=== PATIENT | female | born 1995 | race Caucasian/White ===

== ENCOUNTER 2016-10-09 19:11 | Emergency (ER) | payer OTHER ==
[2016-10-09 19:48] VITALS: BP 112/76
--- NOTE | 2016-10-09 19:57 | UC ---
Skin Complaint HPI - HPI Summary HPI Summary: 21 YEAR OLD FEMALE PRESENTS WITH COMPLAINS OF SEVERE RIGHT ARM TENDERNESS, REDNESS AND SWELLING . I WILL SEND HER TO THE ER FOR I/D. - History of Current Complaint Chief Complaint: UCUpperExtremity Time Seen by Provider: 10/09/16 19:50 Stated Complaint: SOFT TISSUE Hx Last Menstrual Period: NOW - Allergy/Home Medications Allergies/Adverse Reactions: Allergies Allergy/AdvReac Type Severity Reaction Status Date / Time Penicillins Allergy Unknown Unknown Verified 10/09/16 19:47 Reaction Details Review of Systems Constitutional: Negative Skin: Other - RIGHT UPPER ARM CELLULITIS Eyes: Negative ENT: Negative Respiratory: Negative Cardiovascular: Negative Gastrointestinal: Negative Genitourinary: Negative Motor: Negative Neurovascular: Negative Musculoskeletal: Negative Neurological: Negative Psychological: Negative All Other Systems Reviewed And Are Negative: Yes PMH/Surg Hx/FS Hx/Imm Hx - Surgical History Surgical History: None Surgery Procedure, Year, and Place: none - Family History Known Family History: Negative: Cardiac Disease, Hypertension, Diabetes - Social History Alcohol Use: Rare Substance Use Type: Marijuana Smoking Status (MU): Current Every Day Smoker Type: Cigarettes Amount Used/How Often: 1 ppd Physical Exam Triage Information Reviewed: Yes Vital Signs: Initial Vital Signs Temp 37.1 C 10/09/16 19:43 Pulse 106 10/09/16 19:43 Resp 16 10/09/16 19:43 BP 112/76 10/09/16 19:43 Pulse Ox 100 10/09/16 19:43 Eye Exam: Normal ENT Exam: Normal Dental Exam: Normal Neck exam: Normal Neck: Positive: 1 Respiratory Exam: Normal Cardiovascular Exam: Normal Abdominal Exam: Normal Musculoskeletal Exam: Normal Neurological Exam: Normal Psychological Exam: Normal Skin: Positive: Other - RIGHT UPPER ARM CELLULITIS Course/Dx - Differential Diagnoses - Skin Complaint Differential Diagnoses: Abscess - Diagnoses Provider Diagnoses: RIGHT UPPER ARM CELLULITIS Discharge - Discharge Plan Condition: Guarded Disposition: AGAINST MEDICAL ADVICE Patient Education Materials: Abscess (ED) Referrals: No Primary Care Phys,NOPCP [Medical Doctor] -
== END 2016-10-09 20:53 | disposition left against medical advice (07) ==
LOC: UCEAST 19:11
DX: L03.113 Cellulitis of right upper limb (principal); Z88.0 Allergy status to penicillin; F17.210 Nicotine dependence, cigarettes, uncomplicated
CPT/HCPCS: 99212; G0463

== ENCOUNTER 2016-10-09 21:12 | Emergency (ER) | payer OTHER ==
[2016-10-09 23:23] LABS: Hematocrit 41 % (35-47); Hemoglobin 13.2 g/dl (12.0-16.0); Mean Corpuscular HGB Conc 33 g/dl (31-36); Mean Corpuscular Hemoglobin 31 pg (27-31); Mean Corpuscular Volume 95 fL (80-97); Mean Platelet Volume 9 um3 (7.4-10.4); Red Blood Count 4.28 10^6/ul (4.0-5.4); Red Cell Distribution Width 13 % (10.5-15); White Blood Count 15.9 10^3/ul (3.5-10.8)
[2016-10-09] MEDS ORDERED: Vancomycin(*) 1,500 MG in NS 0.9% 250 ML* 250 ML IVPB ONE (23:33)
[2016-10-09 23:34] LABS: Albumin 3.9 g/dL (3.2-5.2); BUN/Creatinine Ratio 10.6 (8-20); Calcium 9.5 mg/dL (8.6-10.3); Globulin 3.2 g/dL (2-4); Potassium 3.5 mmol/L (3.5-5.0); Total Bilirubin 0.6 mg/dL (0.2-1.0); Total Protein 7.1 g/dL (6.4-8.9)
[2016-10-09] MEDS ORDERED: NS 0.9% 250 ML* 250 ML ONE (23:38)
--- NOTE | 2016-10-10 00:34 | ED ---
Skin Complaint - HPI Summary HPI Summary: Patient presents to ED with CC of right upper arm abscess with surrounding erythema and pain x 1 week. She has had a similar abscess through the left arm and was given IV abx with effect. She notes to pain, warmth, redness. No streaking. Afebrile and denies aches, sweats or chills. The area began as a small pustule and has grown to approx [id number] abscess without fluctuance. Erythema and warmth extends down to the elbow with well demarcated area. - History of Current Complaint Chief Complaint: EDRashSkinAbscess Time Seen by Provider: 10/09/16 22:32 Stated Complaint: XFER FROM [facility] [place] Hx Obtained From: Patient Hx Last Menstrual Period: NOW Onset/Duration: Started Weeks Ago Skin Exposure Onset/Duration: Days Ago Timing: Constant Onset Severity: Moderate Current Severity: Moderate Pain Intensity: 8 Pain Scale Used: 0-10 Numeric Skin Location: Arm Character: Swelling, Pain, Redness, Raised Aggravating Symptom(s): Touch Alleviating Symptom(s): Cold Associated Signs & Symptoms: Red Streaks, Joint Swelling - Allergy/Home Medications Allergies/Adverse Reactions: Allergies Allergy/AdvReac Type Severity Reaction Status Date / Time Penicillins Allergy Unknown Unknown Verified 10/09/16 19:47 Reaction Details PMH/Surg Hx/FS Hx/Imm Hx Previously Healthy: Yes Endocrine/Hematology History: Denies: Hx Diabetes, Hx Thyroid Disease Cardiovascular History: Reports: Other Cardiovascular Problems/Disorders Denies: Hx Hypertension Respiratory History: Reports: Hx Asthma - NO MEDS AT THIS TIME Denies: Hx Chronic Obstructive Pulmonary Disease (COPD) GI History: Denies: Hx Ulcer - Surgical History Surgery Procedure, Year, and Place: none Infectious Disease History: No Infectious Disease History: Denies: Hx Clostridium Difficile, Hx Hepatitis, Hx Human Immunodeficiency Virus (HIV), Hx of Known/Suspected MRSA, Hx Shingles, Hx Tuberculosis, Hx Known/ Suspected VRE, Hx Known/Suspected VRSA, History Other Infectious Disease, Traveled Outside the [place] in Last 30 Days - Family History Known Family History: Negative: Cardiac Disease, Hypertension, Diabetes - Social History Alcohol Use: Rare Hx Substance Use: Yes Substance Use Type: Reports: Marijuana Hx Tobacco Use: Yes Smoking Status (MU): Current Every Day Smoker Type: Cigarettes Amount Used/How Often: 1 ppd Review of Systems Constitutional: Negative Eyes: Negative Cardiovascular: Negative Respiratory: Negative Positive: no symptoms reported, see HPI Musculoskeletal: Negative Positive: Other - see above Neurological: Negative Psychological: Normal All Other Systems Reviewed And Are Negative: Yes Physical Exam Triage Information Reviewed: Yes Vital Signs On Initial Exam: Initial Vitals Temp Pulse Resp BP Pulse Ox 97.5 F 96 16 123/77 99 10/09/16 21:15 10/09/16 21:15 10/09/16 21:15 10/09/16 21:15 10/09/16 21:15 Vital Signs Reviewed: Yes Appearance: Positive: Well-Appearing, Well-Nourished Skin: Positive: Warm, Skin Color Reflects Adequate Perfusion Head/Face: Positive: Normal Head/Face Inspection Eyes: Positive: EOMI, ANTONETTE, Conjunctiva Clear Neck: Positive: Supple, No Lymphadenopathy Respiratory/Lung Sounds: Positive: Clear to Auscultation, Breath Sounds Present Cardiovascular: Positive: Normal, RRR, Pulses are Symmetrical in both Upper and Lower Extremities Neurological: Positive: Normal, Sensory/Motor Intact, Alert, Oriented to Person Place, Time, Speech Normal Psychiatric: Positive: Normal AVPU Assessment: Alert - [place] Coma Scale Best Eye Response: 4 - Spontaneous Best Motor Response: 6 - Obeys Commands Best Verbal Response: 5 - Oriented Coma Scale Total: 15 Diagnostics - Vital Signs Vital Signs Temp Pulse Resp BP Pulse Ox 10/09/16 22:01 97.8 F 100 17 114/71 100 10/09/16 21:15 97.5 F 96 16 123/77 99 - Laboratory Lab Results: Lab Results 10/09/16 10/09/16 Range/Units 22:20 22:20 WBC 15.9 H (3.5-10.8) 10^3/ul RBC 4.28 (4.0-5.4) 10^6/ul Hgb 13.2 (12.0-16.0) g/dl Hct 41 (35-47) % MCV 95 (80-97) fL MCH 31 (27-31) pg MCHC 33 (31-36) g/dl RDW 13 (10.5-15) % Plt Count 207 (150-450) 10^3/ul MPV 9 (7.4-10.4) um3 Neut % (Auto) 74.9 (38-83) % Lymph % (Auto) 19.5 L (25-47) % Craig % (Auto) 4.4 (1-9) % Eos % (Auto) 1.0 (0-6) % Baso % (Auto) 0.2 (0-2) % Absolute Neuts (auto) 11.9 H (1.5-7.7) 10^3/ul Absolute Lymphs (auto) 3.1 (1.0-4.8) 10^3/ul Absolute Monos (auto) 0.7 (0-0.8) 10^3/ul Absolute Eos (auto) 0.2 (0-0.6) 10^3/ul Absolute Basos (auto) 0 (0-0.2) 10^3/ul Absolute Nucleated RBC 0 10^3/ul Nucleated RBC % 0 Sodium 135 (133-145) mmol/L Potassium 3.5 (3.5-5.0) mmol/L Chloride 101 (101-111) mmol/L Carbon Dioxide 26 (22-32) mmol/L Anion Gap 8 (2-11) mmol/L BUN 7 (6-24) mg/dL Creatinine 0.66 (0.51-0.95) mg/dL Est GFR ( Amer) 144.0 (>60) Est GFR (Non-Af Amer) 112.0 (>60) BUN/Creatinine Ratio 10.6 (8-20) Glucose 88 (70-100) mg/dL Calcium 9.5 (8.6-10.3) mg/dL Total Bilirubin 0.60 (0.2-1.0) mg/dL AST 11 L (13-39) U/L ALT 7 (7-52) U/L Alkaline Phosphatase 63 (34-104) U/L Total Protein 7.1 (6.4-8.9) g/dL Albumin 3.9 (3.2-5.2) g/dL Globulin 3.2 (2-4) g/dL Albumin/Globulin Ratio 1.2 (1-3) Result Diagrams: 10/09/16 22:20 10/09/16 22:20 Lab Statement: Any lab studies that have been ordered have been reviewed, and results considered in the medical decision making process. Course/Dx - Course Course Of Treatment: Patient with abscess with is non-fluctuant under the right arm with surrounding erythema with warmth. well demarcated area. Vanco 1000mg given. Cindamycin 600mg given in ED. Will send home on Clindamycin 300mg four times daily for 7 days. Patient OK with discharge. - Differential Diagnoses - Skin Complaint Differential Diagnoses: Abscess, Cellulitis, Other - cyst - Diagnoses Provider Diagnoses: Cellulitis and abscess of upper arm and forearm Discharge - Discharge Plan Condition: Stable Disposition: HOME Prescriptions: Clindamycin Cap(NF) [Cleocin 300 mg Cap(NF)] 300 mg PO Q6H #28 cap Patient Education Materials: Cellulitis (ED), Abscess (ED) Referrals: Gordo Amos III, EXECUTIVE PRODUCER [Primary Care Provider] - Additional Instructions: If you develop worsening redness, streaks of red around the wound, swelling, abnormal drainage or you develop a fever - you need to come back to the ED right away. Take the clindamycin four times daily for 7 days do not miss a dose Follow up with your PCP in 1 week
[2016-10-10] MEDS ORDERED: Clindamycin CAP* 150 MG PO ONE (01:57)
[2016-10-10] MEDS ORDERED: Acetaminophen TAB* 325 MG PO ONE (02:13)
[2016-10-10 02:29] VITALS: BP 99/59
== END 2016-10-10 02:24 | disposition home or self-care (01) ==
LOC: ED 21:12
DX: L03.113 Cellulitis of right upper limb (principal); L02.413 Cutaneous abscess of right upper limb; J45.909 Unspecified asthma, uncomplicated; Z88.0 Allergy status to penicillin; F12.90 Cannabis use, unspecified, uncomplicated; F17.210 Nicotine dependence, cigarettes, uncomplicated
CPT/HCPCS: 36415; 80053; 85025; 87040; 96365; 99282; A9270-GY; J3370

== ENCOUNTER 2018-08-24 10:57 | Emergency (ER) | payer OTHER ==
--- NOTE | 2018-08-24 11:42 | ED ---
Lower Extremity - HPI Summary HPI Summary: This patient is a 23 year old female presenting to [facility] with a chief complaint of edema in the bilateral lower extremities since ten days ago. She states it has progressively gotten worse over the 10 days and may be from Suboxone. The patient states she has not been drinking as much water as she should. Pt denies any fever, chills, erythema of eyes, sore throat, CP, SOB, cough, abdominal pain , N/V, dysuria, hematuria, myalgia, rash, or dizziness. - History of Current Complaint Chief Complaint: EDExtremityLower Stated Complaint: LEG PAIN/SWELLING PER PT Time Seen by Provider: 08/24/18 11:24 Hx Obtained From: Patient Hx Last Menstrual Period: NOW Severity Currently: Moderate Pain Intensity: 6 Pain Scale Used: 0-10 Numeric - Allergies/Home Medications Allergies/Adverse Reactions: Allergies Allergy/AdvReac Type Severity Reaction Status Date / Time Penicillins Allergy See Comment Verified 08/24/18 11:02 Home Medications: Home Medications Albuterol HFA INHALER* [Ventolin HFA Inhaler*] 2 puff INH Q6H PRN 08/24/18 [ History Confirmed 08/24/18] Buprenorp/Nalox 8-2 MG FILM [Suboxone] 1 film SL DAILY 08/24/18 [History Confirmed 08/24/18] FLUoxetine CAP* [PROzac CAP*] 20 mg PO DAILY 08/24/18 [History Confirmed ] Fluoxetine HCl [Sarafem] 10 mg PO DAILY 08/24/18 [History Confirmed 08/24/18] Mirtazapine TAB* [Remeron TAB*] 15 mg PO BEDTIME 08/24/18 [History Confirmed ] Nicotine PATCH 14 MG/24 HR* 14 mg TRANSDERM DAILY 08/24/18 [History Confirmed ] Prazosin CAP* [Minipress CAP*] 2 mg PO DAILY 08/24/18 [History Confirmed ] QUEtiapine TAB* [Seroquel 25 MG TAB*] 25 mg PO DAILY 08/24/18 [History Confirmed 08/24/18] QUEtiapine TAB* [Seroquel 25 MG TAB*] 50 mg PO DAILY 08/24/18 [History Confirmed 08/24/18] PMH/Surg Hx/FS Hx/Imm Hx Endocrine/Hematology History: Denies: Hx Diabetes, Hx Thyroid Disease Cardiovascular History: Reports: Other Cardiovascular Problems/Disorders Denies: Hx Hypertension Respiratory History: Reports: Hx Asthma - NO MEDS AT THIS TIME Denies: Hx Chronic Obstructive Pulmonary Disease (COPD) GI History: Denies: Hx Ulcer - Surgical History Surgery Procedure, Year, and Place: none Infectious Disease History: No Infectious Disease History: Denies: Hx Clostridium Difficile, Hx Hepatitis, Hx Human Immunodeficiency Virus (HIV), Hx of Known/Suspected MRSA, Hx Shingles, Hx Tuberculosis, Hx Known/ Suspected VRE, Hx Known/Suspected VRSA, History Other Infectious Disease, Traveled Outside the [place] in Last 30 Days - Family History Known Family History: Negative: Cardiac Disease, Hypertension, Diabetes - Social History Alcohol Use: None Hx Substance Use: Yes Substance Use Type: Reports: Other Substance Use Comment - Amount & Last Used: at rehab- last used 07/03 Hx Tobacco Use: Yes Smoking Status (MU): Former Smoker Type: Cigarettes Amount Used/How Often: 1 ppd Review of Systems Negative: Fever, Chills Negative: Erythema Negative: Sore Throat Negative: Chest Pain Negative: Shortness Of Breath, Cough Negative: Abdominal Pain, Vomiting, Nausea Negative: dysuria, hematuria Positive: Edema. Negative: Myalgia Negative: Rash Neurological: Other - NEG: Dizziness All Other Systems Reviewed And Are Negative: Yes Physical Exam - Summary Physical Exam Summary: Constitutional: Well-developed, Well-nourished, Alert. (-) Distressed Skin: Warm, Dry HENT: Normocephalic; Atraumatic Eyes: Conjunctiva normal Neck: Musculoskeletal ROM normal neck. (-) JVD, (-) Stridor, (-) Tracheal deviation Cardio: Rhythm regular, rate normal, Heart sounds normal; Intact distal pulses; The pedal pulses are 2+ and symmetric. Radial pulses are 2+ and symmetric. (-) Murmur Pulmonary/Chest wall: Effort normal. (-) Respiratory distress, (-) Wheezes, (-) Rales Abd: Soft, (-) tenderness, (-) Distension, (-) Guarding, (-) Rebound Musculoskeletal: (+) 1+ Edema to the BLE up to the knees. Lymph: (-) Cervical adenopathy Neuro: Alert, Oriented x3 Psych: Mood and affect Normal Triage Information Reviewed: Yes Vital Signs On Initial Exam: Initial Vitals Temp Pulse Resp BP Pulse Ox 98.1 F 97 19 128/79 97 08/24/18 10:59 08/24/18 10:59 08/24/18 10:59 08/24/18 10:59 08/24/18 10:59 Vital Signs Reviewed: Yes Diagnostics - Vital Signs Vital Signs Temp Pulse Resp BP Pulse Ox 08/24/18 10:59 98.1 F 97 19 128/79 97 - Laboratory Result Diagrams: 08/24/18 12:05 08/24/18 12:05 Lab Statement: Any lab studies that have been ordered have been reviewed, and results considered in the medical decision making process. - EKG 1148 Cardiac Rate: NL EKG Rhythm: Sinus Rhythm - 87 BPM Summary of EKG Findings: No STEMI Lower Extremity Course/Dx - Course Course Of Treatment: This patient is a 23 year old female presenting to [facility] with a chief complaint of edema in the bilateral lower extremities since ten days ago. According to UpToDate, suboxone causes BLE edema in less than 1% of cases. No evidence of nephrotic syndrome or CHF. Decision to continue Suboxone will be according to [facility]. The patient will be discharged. This plan was discussed with the patient and she was agreeable with this plan. - Diagnoses Provider Diagnoses: Peripheral edema Discharge - Sign-Out/Discharge Documenting (check all that apply): Patient Departure - Discharge Patient Received Moderate/Deep Sedation with Procedure: No - Discharge Plan Condition: Stable Disposition: HOME Prescriptions: Furosemide TAB* [Lasix TAB*] 20 mg PO DAILY #7 tab Patient Education Materials: Leg Edema (ED) Referrals: Gordo Amos III, RAMP AND CAR[employer] SUPERVISOR [Primary Care Provider] - Additional Instructions: Decision to continue Suboxone treatment will be deferred to [facility]. Return to ED with any new or worsening symptoms. - Attestation Statements Document Initiated by Scribe: Yes Documenting Scribe: Stew Arias Provider For Whom Scribe is Documenting (Include Credential): Raúl Mallory MD Scribe Attestation: Stew Hogan, scribed for Raúl Mallory MD on 08/24/18 at 1356. Status of Scribe Document: Ready
[2018-08-24 12:23] LABS: Hematocrit 33 % (35-47); Mean Corpuscular HGB Conc 33 g/dL (31-36); Mean Corpuscular Hemoglobin 31 pg (27-31); Mean Corpuscular Volume 94 fL (80-97); Mean Platelet Volume 6.9 fL (7.4-10.4); Platelet Count 201 10^3/uL (150-450); Red Blood Count 3.53 10^6 /uL (3.70-4.87); Red Cell Distribution Width 13 % (10.5-15); White Blood Count 5.7 10^3/uL (3.5-10.8)
[2018-08-24 12:51] LABS: Albumin 3.4 g/dL (3.2-5.2); Albumin/Globulin Ratio 1.4 (1-3); BUN/Creatinine Ratio 14.5 (8-20); Calcium 9.2 mg/dL (8.6-10.3); EGFR African American 143.1 (>60); EGFR Non-African American 118.3 (>60); Globulin 2.4 g/dL (2-4); Total Bilirubin 0.3 mg/dL (0.2-1.0); Total Protein 5.8 g/dL (6.4-8.9)
[2018-08-24 13:31] LABS: Urine Appearance Cloudy; Urine Bacteria Absent (Absent); Urine Bilirubin Negative (Negative); Urine Blood Negative (Negative); Urine Color Yellow; Urine Glucose Negative (Negative); Urine Ketones Negative (Negative); Urine Nitrite Negative (Negative); Urine Protein Negative (Negative); Urine Red Blood Cell Trace(0-2/hpf) (Absent); Urine Specific Gravity 1.014 (1.010-1.030); Urine Squamous Epithelial Cell Present (Absent); Urine Urobilinogen Negative (Negative); Urine White Blood Cell Trace(0-5/hpf) (Absent)
[2018-08-24] MEDS ORDERED: Furosemide TAB* 20 MG PO ONE (13:56)
[2018-08-24 14:00] LABS: Urine Benzodiazepine Screen None Detected (None Detect); Urine Opiates Screen None Detected (None Detect)
[2018-08-24 14:13] VITALS: BP 122/54
== END 2018-08-24 14:12 | disposition home or self-care (01) ==
LOC: ED 10:57
DX: R60.9 Edema, unspecified (principal); J45.909 Unspecified asthma, uncomplicated; Z88.0 Allergy status to penicillin; Z79.51 Long term (current) use of inhaled steroids; Z79.899 Other long term (current) drug therapy; Z87.891 Personal history of nicotine dependence
CPT/HCPCS: 36415; 80053; 80307; 81003; 81015; 83880; 84484; 85027; 87086; 93005; 99282; A9270-GY

== ENCOUNTER 2018-11-20 08:38 | Emergency (ER) | payer OTHER ==
[2018-11-20 08:51] VITALS: BP 149/87
--- NOTE | 2018-11-20 08:53 | UC ---
Abdominal Pain Female HPI - HPI Summary HPI Summary: 23-year-old female presents with onset of right lower quadrant pain that started last night and has progressively worsened. States pain is sharp in nature and constant. Radiates through to her back. Last menstrual period was approximately one month ago. States she is not sexually active. Denies fever, chills, nausea, vomiting, diarrhea, dysuria, frequency, urgency, hematuria, or vaginal discharge. - History of Current Complaint Stated Complaint: ABDOMINAL PAIN Time Seen by Provider: 11/20/18 08:39 Hx Obtained From: Patient Hx Last Menstrual Period: NOW Allergies/Adverse Reactions: Allergies Allergy/AdvReac Type Severity Reaction Status Date / Time Penicillins Allergy See Comment Verified 11/20/18 08:52 PMH/Surg Hx/FS Hx/Imm Hx Respiratory History: Asthma Psychological History: Depression - Surgical History Surgical History: None Surgery Procedure, Year, and Place: none - Family History Known Family History: Positive: Non-Contributory - Social History Occupation: Unemployed Lives: With Family Alcohol Use: None Substance Use Type: Other Substance Use Comment - Amount & Last Used: Currently sober Smoking Status (MU): Former Smoker Type: Cigarettes Amount Used/How Often: 1 ppd Household Exposure Type: Cigarettes Review of Systems All Other Systems Reviewed And Are Negative: Yes Constitutional: Negative: Fever, Chills Skin: Positive: Negative Respiratory: Positive: Negative Cardiovascular: Positive: Negative Gastrointestinal: Positive: Abdominal Pain. Negative: Vomiting, Diarrhea, Nausea Genitourinary: Negative: Dysuria, Hematuria, Frequency, Urgency, Vaginal/Penile Discharge Musculoskeletal: Positive: Negative Neurological: Positive: Negative Is Patient Immunocompromised?: No Physical Exam - Summary Physical Exam Summary: GENERAL APPEARANCE: Well developed, well nourished, alert and cooperative young adult female who appears uncomfortable crying and holding her RLQ abdomen. CARDIAC: Normal S1 and S2. No S3, S4 or murmurs. Rhythm is regular. There is no peripheral edema, cyanosis or pallor. Extremities are warm and well perfused. Capillary refill is less than 2 seconds. Peripheral pulses intact. LUNGS: Clear to auscultation without rales, rhonchi, wheezing or diminished breath sounds. ABDOMEN: Positive bowel sounds. Soft, nondistended. Significant RLQ tenderness with guarding. No masses or hepatosplenomegally. MUSKULOSKELETAL: ROM intact to all extremities. No joint erythema or tenderness. Normal muscular development. Normal gait. SKIN: Skin normal color, texture and turgor with no lesions or eruptions. Triage Information Reviewed: Yes Vital Signs Reviewed: Yes Abd Pain Female Course/Dx - Course Course Of Treatment: 23-year-old female presents with onset of right lower quadrant pain that started last night and has progressively worsened. States pain is sharp in nature and constant. Radiates through to her back. Last menstrual period was approximately one month ago. States she is not sexually active. Denies fever, chills, nausea, vomiting, diarrhea, dysuria, frequency, urgency, hematuria, or vaginal discharge. Afebrile. Mildly hypertensive and tachycardic otherwise vital signs stable. Patient was in obvious discomfort crying and holding her right lower quadrant. She had right lower quadrant tenderness with guarding on exam. Discussed with the patient that with her significant right lower quadrant pain I am concerned about a possible appendicitis and I'm recommending that she be evaluated in the emergency room at this time. Patient is agreeable to this and is electing to transport via private vehicle with her father driving. - Differential Dx/Diagnosis Differential Diagnosis: Appendicitis, Ectopic , Ovarian Cyst Provider Diagnosis: Abdominal pain, RLQ Discharge - Sign-Out/Discharge Documenting (check all that apply): Patient Departure All imaging exams completed and their final reports reviewed: No Studies - Discharge Plan Condition: Stable Disposition: HOME Patient Education Materials: Acute Abdominal Pain (ED) Referrals: Gordo Amos III CHIEF SCIENTIST [Primary Care Provider] - Additional Instructions: Your abdominal pain is concerning for possible appendicitis. I am recommending that you go directly to the emergency room at this time for further evaluation. Go directly to the emergency room from here. Do NOT eat or drink anything until you have been evaluated. - Billing Disposition and Condition Condition: STABLE Disposition: Home
== END 2018-11-20 08:58 | disposition home health service (06) ==
LOC: UCEAST 08:38
DX: R10.31 Right lower quadrant pain (principal); Z88.0 Allergy status to penicillin; Z87.891 Personal history of nicotine dependence
CPT/HCPCS: 99212; G0463

== ENCOUNTER 2018-11-20 09:12 | Emergency (ER) | payer OTHER ==
[2018-11-20] MEDS ORDERED: Ondansetron INJ* 2 MG/ML VIAL IV ONE (09:32)
[2018-11-20] MEDS ORDERED: Morphine 4 MG/ML VIAL (1 ml) 4 MG/ML VIAL IV ONE (09:32)
[2018-11-20] MEDS ORDERED: NS 0.9% 1000 ML** 1,000 ML IV ONE (09:34)
--- NOTE | 2018-11-20 09:45 | ED ---
Abdominal Pain/Female - HPI Summary HPI Summary: Patient is a 23 y/o F presenting to ED with complaints of RLQ pain. She reports pain onset last night, 11/19/18 and worsened this morning 11/20/18. Pain is rated 8-9/10 in room. Patient denies N/V, vaginal discharge and bleeding. She denies Hx of ovarian cysts. PMHx of asthma, no PSHx reported. Appendix is still present. Patient uses tobacco but denies alcohol usage. Patient has a Hx of opioid abuse. Last opioid usage was in July 2018, patient notes that she has just gotten out of rehab. Patient is currently on suboxone, with last usage being this morning 11/20/18. On triage, nothing is noted to aggravate/alleviate Sx. Home medications and allergies are reviewed. - History of Current Complaint Chief Complaint: EDAbdPain Stated Complaint: ABDOMINAL PAIN PER PT Hx Obtained From: Patient Hx Last Menstrual Period: NOW Onset/Duration: Lasting Hours, Still Present, Worse Since Timing: Hours Severity Initially: Moderate Severity Currently: Severe Pain Intensity: 8 Pain Scale Used: 0-10 Numeric Location: Discrete At: RLQ Aggravating Factor(s): Nothing Alleviating Factor(s): Nothing Associated Signs and Symptoms: Negative: Vaginal Bleeding, Vaginal Discharge, Nausea, Vomiting Allergies/Adverse Reactions: Allergies Allergy/AdvReac Type Severity Reaction Status Date / Time Penicillins Allergy See Comment Verified 11/20/18 08:52 PMH/Surg Hx/FS Hx/Imm Hx Endocrine/Hematology History: Denies: Hx Diabetes, Hx Thyroid Disease Cardiovascular History: Reports: Other Cardiovascular Problems/Disorders Denies: Hx Hypertension Respiratory History: Reports: Hx Asthma - NO MEDS AT THIS TIME Denies: Hx Chronic Obstructive Pulmonary Disease (COPD) GI History: Denies: Hx Ulcer - Surgical History Surgery Procedure, Year, and Place: none Infectious Disease History: No Infectious Disease History: Denies: Hx Clostridium Difficile, Hx Hepatitis, Hx Human Immunodeficiency Virus (HIV), Hx of Known/Suspected MRSA, Hx Shingles, Hx Tuberculosis, Hx Known/ Suspected VRE, Hx Known/Suspected VRSA, History Other Infectious Disease, Traveled Outside the [place] in Last 30 Days - Family History Known Family History: Negative: Cardiac Disease, Hypertension, Diabetes - Social History Alcohol Use: None Hx Substance Use: Yes Substance Use Type: Reports: Other Substance Use Comment - Amount & Last Used: Currently sober Hx Tobacco Use: Yes Smoking Status (MU): Former Smoker Type: Cigarettes Amount Used/How Often: 1 ppd Review of Systems Positive: Abdominal Pain. Negative: Vomiting, Nausea Genitourinary: Other - negative - vaginal bleeding Negative: discharge - vaginal All Other Systems Reviewed And Are Negative: Yes Physical Exam - Summary Physical Exam Summary: VITAL SIGNS: Reviewed. GENERAL: Patient is a well-developed and nourished female who is lying comfortable in the stretcher. Patient is not in any acute respiratory distress. HEAD AND FACE: No signs of trauma. No ecchymosis, hematomas or skull depressions. No sinus tenderness. EYES: PERRLA, EOMI x 2, No injected conjunctiva, no nystagmus. EARS: Hearing grossly intact. Ear canals and tympanic membranes are within normal limits. MOUTH: Oropharynx within normal limits. NECK: Supple, trachea is midline, no adenopathy, no JVD, no carotid bruit, no c- spine tenderness, neck with full ROM. CHEST: Symmetric, no tenderness at palpation. LUNGS: Clear to auscultation bilaterally. No wheezing or crackles. CVS: Regular rate and rhythm, S1 and S2 present, no murmurs or gallops appreciated. ABDOMEN: RLQ tenderness with some guarding. Soft. No signs of distention. No rebound and no masses palpated. Bowel sounds are normal. EXTREMITIES: FROM in all major joints, no edema, no cyanosis or clubbing. NEURO: Alert and oriented x 3. No acute neurological deficits. Speech is normal and follows commands. SKIN: Dry and warm. Triage Information Reviewed: Yes Vital Signs On Initial Exam: Initial Vitals Temp Pulse Resp BP Pulse Ox 100.1 F 99 18 134/88 97 11/20/18 09:13 11/20/18 09:13 11/20/18 09:13 11/20/18 09:13 11/20/18 09:13 Vital Signs Reviewed: Yes Diagnostics - Vital Signs Vital Signs Temp Pulse Resp BP Pulse Ox 11/20/18 09:13 100.1 F 99 18 134/88 97 - Laboratory Result Diagrams: 11/20/18 09:38 11/20/18 09:38 Lab Statement: Any lab studies that have been ordered have been reviewed, and results considered in the medical decision making process. - CT ABD/PEL CT CT Interpretation Completed By: Radiologist Summary of CT Findings: CT ABD/PEL IMPRESSION: 1. FATTY INFILTRATION OF THE LIVER. 2. NORMAL APPENDIX. THIS REPORT WAS REVIEWED BY DR. GREENFIELD Abdominal Pain Fem Course/Dx - Course Course Of Treatment: Patient is a 23 y/o F presenting to ED with complaints of RLQ pain. She reports pain onset last night, 11/19/18 and worsened this morning . Pain is rated 8-9/10 in room. Patient denies N/V, vaginal discharge and bleeding. She denies Hx of ovarian cysts. PMHx of asthma, no PSHx reported. Appendix is still present. Patient uses tobacco but denies alcohol usage. Patient has a Hx of opioid abuse. Last opioid usage was in July 2018, patient notes that she has just gotten out of rehab. Patient is currently on suboxone, with last usage being this morning 11/20/18. Blood work without any significant abnormality except for AST of 133, AST of 92, and CRP of 12.2. Beta hCG is negative. Abdominal pelvic CT impression: Fatty infiltration of the liver. Normal appendix. In the ED course, the patient was given 1 dose of morphine and her symptoms are resolved. I offered to do a pelvic ultrasound, but she declined. I offered the patient a pelvic exam and she declined this as well. Patient was given Toradol for pain and she reports improvement of symptoms. Therefore the patient will be discharged home with follow-up with primary care physician. The patient is hemodynamically stable alert and oriented 3. - Diagnoses Provider Diagnoses: Lower abdominal pain Discharge - Sign-Out/Discharge Documenting (check all that apply): Patient Departure - DISCHARGE Patient Received Moderate/Deep Sedation with Procedure: No - Discharge Plan Condition: Stable Disposition: HOME Prescriptions: Naproxen [Naprosyn 500 mg tab] 500 mg PO BID PRN #20 tablet PRN Reason: Pain - Mild Patient Education Materials: Acute Abdominal Pain (ED) Forms: *Gen. Provider Communication Referrals: Gordo Amos III [facility] INST[employer]ER [Primary Care Provider] - 3 Days Additional Instructions: PLEASE RETURN TO ED FOR ANY NEW OR WORSENING SYMPTOMS. PLEASE FOLLOW-UP WITH YOUR PRIMARY CARE PHYSICIAN WITHIN THREE DAYS. - Billing Disposition and Condition Condition: STABLE Disposition: Home - Attestation Statements Document Initiated by Scribe: Yes Documenting Scribe: RAYA SALCIDO Provider For Whom Scribe is Documenting (Include Credential): HELADIO GREENFIELD MD Scribe Attestation: I, RAYA SALCIDO, scribed for HELADIO GREENFIELD MD on 11/21/18 at 0722. Scribe Documentation Reviewed: Yes Provider Attestation: The documentation as recorded by the scribeRAYA accurately reflects the service I personally performed and the decisions made by me, HELADIO GREENFIELD MD Status of Scribe Document: Viewed
[2018-11-20 09:51] LABS: ABS Eosinophils 0.1 10^3/ul (0-0.6); ABS Lymphocytes 1.8 10^3/ul (1.0-4.8); ABS Monocytes 0.3 10^3/ul (0-0.8); ABS Neutrophils 5.3 10^3/ul (1.5-7.7); Eosinophil % 1.5 %; Hematocrit 39 % (35-47); Hemoglobin 13.2 g/dL (12.0-16.0); Lymphocyte % 23.7 %; Mean Corpuscular HGB Conc 34 g/dL (31-36); Mean Corpuscular Hemoglobin 30 pg (27-31); Mean Corpuscular Volume 89 fL (80-97); Nucleated Red Blood Cells % 0.1; Platelet Count 217 10^3/uL (150-450); Red Blood Count 4.38 10^6 /uL (3.70-4.87); Red Cell Distribution Width 13 % (10-15); White Blood Count 7.5 10^3/uL (3.5-10.8)
[2018-11-20 10:14] LABS: ALT 92 U/L (7-52); AST 133 U/L (13-39); Albumin 3.9 g/dL (3.2-5.2); Albumin/Globulin Ratio 1.5 (1-3); Alkaline Phosphatase 76 U/L (34-104); Amylase 31 U/L (29-103); Anion Gap 6 mmol/L (2-11); BUN/Creatinine Ratio 17.8 (8-20); Blood Urea Nitrogen 13 mg/dL (6-24); C Reactive Protein 12.26 mg/L (<8.01); CO2 Carbon Dioxide 26 mmol/L (22-32); Calcium 8.9 mg/dL (8.6-10.3); Chloride 107 mmol/L (101-111); EGFR African American 118.5 (>60); EGFR Non-African American 97.9 (>60); Globulin 2.6 g/dL (2-4); Glucose 94 mg/dL (70-100); Potassium 3.8 mmol/L (3.5-5.0); Sodium 139 mmol/L (135-145); Total Protein 6.5 g/dL (6.4-8.9)
[2018-11-20 10:17] LABS: HCG Pregnancy < 0.60 mIU/mL
[2018-11-20] MEDS ORDERED: Iohexol 300* (CONTRAST) 10 ML SDV IV ONE (12:00)
[2018-11-20] MEDS ORDERED: Ketorolac INJ* 30 MG/ML 1 ML VIAL IV PUSH ONE (13:25)
[2018-11-20 14:10] VITALS: BP 103/58
== END 2018-11-20 14:09 | disposition home or self-care (01) ==
LOC: ED 09:12
DX: R10.31 Right lower quadrant pain (principal); Z88.0 Allergy status to penicillin; Z87.891 Personal history of nicotine dependence; K76.0 Fatty (change of) liver, not elsewhere classified
CPT/HCPCS: 36415; 74177; 80053; 82150; 83605; 83690; 84702; 85025; 86140; 96374; 96375; 99283; J2270; J2405; Q9967